=== PATIENT | male | born 1955 | race Caucasian/White ===

== ENCOUNTER 2016-12-02 15:53 | Emergency (ER) | payer OTHER ==
[~2016-12-02] VITALS: Ht 167.6 cm; Wt 79.4 kg
--- NOTE | 2016-12-02 16:04 | NUR ---
anal pain x 1 week. GOWNED PT. AWAITING MD ORDER
--- NOTE | 2016-12-02 16:40 | NUR ---
LAC #20 IV ACCESS. BLOOD SAMPLE COLLECTED SENT TO LAB
--- NOTE | 2016-12-02 16:44 | NUR ---
URINE SAMPLE COLLECTED SENT TO LAB
[2016-12-02 16:52] LABS: BASOPHILS # (AUTO) 0.1 /CMM (0.0-0.2); EOSINOPHILS # (AUTO) 0.2 /CMM (0.0-0.7); EOSINOPHILS % (AUTO) 2.1 % (0.0-6.0); HEMATOCRIT 40 % (39-51); HEMOGLOBIN 13.7 g/dL (13.5-17.5); LYMPHOCYTES # (AUTO) 1.9 /CMM (0.8-4.8); LYMPHOCYTES % (AUTO) 18.2 % (20.0-44.0); MEAN CORPUSCULAR HEMOGLOBIN 34 PG (26.0-33.0); MEAN CORPUSCULAR HGB CONC 35 g/dl (31.0-36.0); MEAN CORPUSCULAR VOLUME 97 fL (80-96); MONOCYTES # (AUTO) 1.1 /CMM (0.1-1.30); MONOCYTES % (AUTO) 10.4 % (2.0-12.0); NEUTROPHILS # (AUTO) 7.1 /CMM (1.8-8.9); NEUTROPHILS % (AUTO) 68.3 % (43.0-81.0); PLATELET COUNT (AUTO) 148 /CMM (150-450); RDW COEFFICIENT OF VARIATION 13.3 (11.5-15.0); WHITE BLOOD COUNT (AUTO) 10.4 K/uL (4.3-11.0)
[2016-12-02 16:57] LABS: APPEARANCE,URINE SL CLOUDY (CLEAR); BILIRUBIN,URINE NEGATIVE (NEGATIVE); BLOOD, URINE NEGATIVE Ery/uL (NEGATIVE); COLOR,URINE YELLOW (YELLOW); KETONES,URINE TRACE (NEGATIVE); LEUKOCYTE ESTERASE ,URINE NEGATIVE (NEGATIVE); NITRITE, URINE NEGATIVE (NEGATIVE); PROTEIN,URINE NEGATIVE (NEGATIVE); UGLUCOSE NEGATIVE (NEGATIVE); UROBILINOGEN,URINE 0.2 EU/dL (0.2)
[2016-12-02 17:09] LABS: ALBUMIN 3.6 g/dL (3.4-5.0); BILIRUBIN,DIRECT 0.1 mg/dL (0.0-0.2); BILIRUBIN,TOTAL 0.3 mg/dL (0.2-1.0); TOTAL PROTEIN, SERUM 6.8 g/dL (6.4-8.2)
[2016-12-02 17:12] LABS: INR 0.92 (0.87-1.13); PROTHROMBIN TIME 9.8 SECS (9.5-12.7)
[2016-12-02 17:35] LABS: BACTERIA,URINE None seen /HPF (None Seen); RBC,URINE 0-2 /HPF (0-2); SQUAMOUS EPITHELIAL CELL,UR Rare /HPF (None Seen); WBC,URINE 0-2 /HPF (0-3)
--- NOTE | 2016-12-02 17:54 | NUR ---
Patient discharged to home in stable condition. Written and verbal after care instructions given. Patient verbalizes understanding of instruction.
--- NOTE | 2016-12-02 17:54 | NUR ---
IV removed. Catheter intact and site benign. Pressure and 4x4 applied to site. No bleeding noted.
[2016-12-02 17:55] VITALS: BP 125/76
== END 2016-12-02 17:55 | disposition home or self-care (01) ==
LOC: ER 15:57
DX: K59.4 Anal spasm (principal)
CPT/HCPCS: 36415; 80076; 81001; 83690; 85025; 85730; 99284; A4606; Z7610; 81000-TC

== ENCOUNTER 2018-10-05 19:14 | Emergency (ER) | payer OTHER ==
[~2018-10-05] VITALS: Ht 170.2 cm; Wt 88.5 kg
--- NOTE | 2018-10-05 19:31 | NUR ---
BIB SELF FROM HOME. AAOX4. AMBULATORY. NAD. BREATHING EVEN AND UNLABORED. CAME IN W/ C/O DIZZYNESS X 5 DAY. NO N/V. DENIES CP. NO ABDOMINAL PAIN. TO ER BED 1. AWAITING MD [id number]
--- NOTE | 2018-10-05 19:41 | NUR ---
AT BEDSIDE FOR EVAL
[2018-10-05] MEDS ORDERED: MECLIZINE HCL 12.5 MG TABLET PO ONE (20:00)
[2018-10-05] MEDS ORDERED: ONDANSETRON HCL/PF 4 MG/2 ML VIAL IVP ONE (20:00)
[2018-10-05] MEDS ORDERED: IV NS 0.9% 1,000 ML BAG IV ONE (20:00)
[2018-10-05] MEDS ORDERED: ONDANSETRON HCL/PF 4 MG/2 ML VIAL ONE (20:06)
[2018-10-05] MEDS ORDERED: MECLIZINE HCL 25 MG TABLET ONE (20:06)
[2018-10-05 20:13] LABS: BASOPHILS # (AUTO) 0.1 /CMM (0.0-0.2); BASOPHILS % (AUTO) 0.9 % (0.0-2.0); EOSINOPHILS % (AUTO) 5.2 % (0.0-6.0); HEMATOCRIT 42 % (39-51); HEMOGLOBIN 14.3 g/dL (13.5-17.5); LYMPHOCYTES # (AUTO) 2.8 /CMM (0.8-4.8); LYMPHOCYTES % (AUTO) 30.8 % (20.0-44.0); MEAN CORPUSCULAR HGB CONC 35 g/dl (31.0-36.0); MEAN CORPUSCULAR VOLUME 99 fL (80-96); MONOCYTES # (AUTO) 0.9 /CMM (0.1-1.30); MONOCYTES % (AUTO) 9.8 % (2.0-12.0); NEUTROPHILS # (AUTO) 4.8 /CMM (1.8-8.9); NEUTROPHILS % (AUTO) 53.3 % (43.0-81.0); PLATELET COUNT (AUTO) 166 /CMM (150-450); RED BLOOD CELL COUNT(AUTO) 4.19 MIL/uL (4.5-6.0); WHITE BLOOD COUNT (AUTO) 8.9 K/uL (4.3-11.0)
--- NOTE | 2018-10-05 20:20 | NUR ---
PT WHEELED TO RADILOGY ON [facility]
[2018-10-05 20:21] LABS: CALCIUM, SERUM 8.6 mg/dL (8.5-10.1); CREATININE 1.1 mg/dL (0.6-1.3); POTASSIUM 3.6 mmol/L (3.5-5.1)
--- NOTE | 2018-10-05 20:27 | NUR ---
PT BACK FROM RADIOLOGY
--- NOTE | 2018-10-05 21:27 | NUR ---
PT AMBULATED TO BATHROOM WITHOUT ASSISTANCE
[2018-10-05] MEDS ORDERED: DIAZEPAM 5 MG TABLET ONE (21:45)
[2018-10-05 21:59] VITALS: BP 141/82
[2018-10-05] MEDS ORDERED: DIAZEPAM 10 MG TABLET PO ONE (22:00)
--- NOTE | 2018-10-05 22:00 | NUR ---
Patient discharged to home in stable condition. Written and verbal after care instructions given. Patient verbalizes understanding of instruction.IV removed. Catheter intact and site benign. Pressure and 4x4 applied to site. No bleeding noted. Pt ambulatory with a steady gait
== END 2018-10-05 22:00 | disposition home or self-care (01) ==
LOC: ER 19:14
DX: R42 Dizziness and giddiness (principal)
CPT/HCPCS: 36415; 70450; 80048; 85025; 96361; 96374; 99284; J2405; J7030; J8597

== ENCOUNTER 2019-06-18 18:53 | Emergency (ER) | payer OTHER ==
[~2019-06-18] VITALS: Ht 152.4 cm; Wt 86.2 kg
[2019-06-18 19:00] VITALS: BP 134/81
[2019-06-18] MEDS ORDERED: KETOROLAC TROMETHAMINE INJ 60 MG/2 ML VIAL IM ONE ×2 (19:30→19:34)
== END 2019-06-18 19:43 | disposition home or self-care (01) ==
LOC: ER 18:53
DX: M25.512 Pain in left shoulder (principal)
CPT/HCPCS: 96372; 99283; J1885

== ENCOUNTER 2020-09-24 11:05 | Emergency (ER) | payer OTHER ==
[~2020-09-24] VITALS: Ht 165.1 cm; Wt 76.2 kg
[2020-09-24] MEDS ORDERED: HYDROCODONE/APAP 10/325MG TABLET ONE (11:26)
[2020-09-24] MEDS ORDERED: HYDROCODONE/APAP 10/325MG TABLET PO ONE (11:30)
--- NOTE | 2020-09-24 11:31 | NUR ---
BIBS W/ TO ER BED 12. AAOX4. NOT IN RESP DISTRESS. BROUGHT IN FOR R INGUINAL PAIN RADIATING DOWN TO THE LEG. PT IS HAVING DIFFICULTY WALKING. ROM IS LIMITED D/T PAIN. WAS AT THE BEDSIDE FOR EVAL. ORDERS RECEIVED, NOTED AND CARRIED OUT.
[2020-09-24] MEDS ORDERED: TRAM50TA2 PO (12:35)
[2020-09-24] MEDS ORDERED: TAMS-12 PO (12:35)
[2020-09-24] MEDS ORDERED: KETOROLAC TROMETHAMINE INJ 30 MG/ML VIAL ONE (12:36)
[2020-09-24 12:59] VITALS: BP 138/77
[2020-09-24] MEDS ORDERED: KETOROLAC TROMETHAMINE INJ 60 MG/2 ML VIAL IM ONE (13:00)
== END 2020-09-24 12:59 | disposition home or self-care (01) ==
LOC: ER 11:14
DX: N20.0 Calculus of kidney (principal); Z79.899 Other long term (current) drug therapy
CPT/HCPCS: 74176; 96372; 99284; J1885

== ENCOUNTER 2021-08-07 17:32 | Emergency (ER) | payer OTHER ==
[~2021-08-07] VITALS: Ht 165.1 cm; Wt 77.1 kg
[~2021-08-07 17:32] MED LIST: TAMS-12 PO; TRAM50TA2 PO
[2021-08-07 17:40] VITALS: BP 116/62
--- NOTE | 2021-08-07 19:00 | NUR ---
PT BIBLF @ 7212 C/O FISSURES/FLAKING, FINGERS
[2021-08-07] MEDS ORDERED: MINE30LO TP (19:57)
[2021-08-07] MEDS ORDERED: CEPH500C2 PO (19:57)
[2021-08-07] MEDS ORDERED: CALAMINE 118 ML BOTTLE TP STA (19:58)
--- NOTE | 2021-08-07 20:09 | NUR ---
Patient discharged to home in stable condition. Written and verbal after care instructions given. Patient verbalizes understanding of instruction. pt ambulatory with a steady gait
== END 2021-08-07 20:14 | disposition home or self-care (01) ==
LOC: ER 17:37
DX: L25.9 Unspecified contact dermatitis, unspecified cause (principal); Z79.899 Other long term (current) drug therapy
CPT/HCPCS: 73130-TC